=== PATIENT | male | born 1950 | race Caucasian/White ===

== ENCOUNTER 2017-08-07 10:00 | Outpatient (RCR) | payer MEDICARE, SELFPAY ==
--- NOTE | 2017-08-07 11:34 | COCO.CNN ---
Primary Reason for Visit Medical/Dental/Vision (Help with cost of ventilator) Referral to Care Coordination Referral to Care Coordination: Yes Type: PCP (Left message for [facility]. Kimberly - Shuttle Threader 08/07/17) Referral to Services: Yes Where and Who: 08/07/17 Left a message for Sloane Mccullough at [facility] to find out where to go from here. Venu had met with [facility] in the past but she is no longer working there. - Referral From Referral From: Other (Dr Mendoza) Care Plan - Plan of Care Assessment/Background: [facility] She sent Venu Gonzales up to see me because he needs help paying for the ventilator that he has to use at night. He currently has Medicare only for insurance. Venu came in and explained to me some of his medical history and how he now has to have a ventilator at night. He goes through [employer] for his supplies. He is concerned that Medicare only covers 80% of the cost and he does not have the money for the 20% remaining each month. His income comes from [employer] at roughly $1637.00 per month. Plan of Care: I will have to do some research and get back to him. I also gave him my card and asked him to call me if he hasn't heard from me or has any further questions.
--- NOTE | 2017-08-07 13:10 | PDOC.CNN_ITS ---
Primary Reason for Visit Medical/Dental/Vision (Help with cost of ventilator) Referral to Care Coordination Referral to Care Coordination: Yes Type: PCP (Left message for [facility]. Kimberly - Vice President Underwriting 08/07/17) Referral to Services: Yes Where and Who: 08/07/17 Left a message for Solane Mccullough at [facility] to find out where to go from here. Venu had met with [facility] in the past but she is no longer working there. - Referral From Referral From: Other (Dr Mendoza) Care Plan - Plan of Care Assessment/Background: [facility] She sent Venu Gonzales up to see me because he needs help paying for the ventilator that he has to use at night. He currently has Medicare only for insurance. Venu came in and explained to me some of his medical history and how he now has to have a ventilator at night. He goes through [employer] for his supplies. He is concerned that Medicare only covers 80% of the cost and he does not have the money for the 20% remaining each month. His income comes from [employer] at roughly $1637.00 per month. Plan of Care: I will have to do some research and get back to him. I also gave him my card and asked him to call me if he hasn't heard from me or has any further questions.
--- NOTE | 2017-08-07 13:20 | COCO.CNN ---
Primary Reason for Visit Medical/Dental/Vision (Ventilator costs) Referral to Care Coordination Referral to Care Coordination: No Referral to Services: No - Referral From Referral From: Self Care Plan - Plan of Care Assessment/Background: I have talked with Michael at [facility]. She said that it looks like Venu has worked with [facility] before, but she is not longer there. It looks like they had been working on a [employer] application. I left a message for Sloane @ [facility] to see if there are any programs to help him and to see if he can be set up with someone else to work with him. I left a message for Kimberly at [facility]. She is the Hydraulic Dredge Operator there at his PCP's office and I am hoping she can help me as well. I called Paige at [facility] and she said that Venu's current balance is $1044.97 and he has to meet his $183 Medicare deductible and then the 20% coinsurance he will owe per month is roughly $188.00. She said that if we can provide them a denial from Medicaid we may be able to work on a Financial Waiver Form through [facility]. She also wondered about Jail Medicaid. Plan of Care: I am awaiting a call back from [facility] and [facility] to see if they can help guide me where to go from here in helping Venu with this medical expense.
--- NOTE | 2017-08-07 13:28 | PDOC.CNN_ITS ---
Primary Reason for Visit Medical/Dental/Vision (Ventilator costs) Referral to Care Coordination Referral to Care Coordination: No Referral to Services: No - Referral From Referral From: Self Care Plan - Plan of Care Assessment/Background: I have talked with Michael at [facility]. She said that it looks like Venu has worked with [facility] before, but she is not longer there. It looks like they had been working on a [employer] application. I left a message for Sloane @ [facility] to see if there are any programs to help him and to see if he can be set up with someone else to work with him. I left a message for Kimberly at [facility]. She is the Pricing Supervisor there at his PCP's office and I am hoping she can help me as well. I called Paige at [facility] and she said that Venu's current balance is $1044.97 and he has to meet his $183 Medicare deductible and then the 20% coinsurance he will owe per month is roughly $188.00. She said that if we can provide them a denial from Medicaid we may be able to work on a Financial Waiver Form through [facility]. She also wondered about [place] Medicaid. Plan of Care: I am awaiting a call back from [facility] and [facility] to see if they can help guide me where to go from here in helping Venu with this medical expense.
== END 2018-02-01 10:00 ==
LOC: COCO 10:00
PROVIDERS: Visit Provider Internal Medicine
DX: R69 Illness, unspecified (principal)

== ENCOUNTER 2018-01-09 16:30 | Outpatient (REF) | payer MEDICARE, SELFPAY ==
[2018-01-09 22:44] LABS: ALT 29 U/L (12-78); AST 23 U/L (15-37); Albumin 4.1 g/dL (3.4-5.0); Alkaline Phosphatase 102 U/L (46-116); Anion Gap 5.1 mmol/L (3-11); BUN 16 mg/dL (7-18); Bilirubin, Total 0.4 mg/dL (0.2-1.0); CO2 34.9 mmol/L (21.0-32.0); CREATININE 1.45 mg/dL (0.70-1.30); Calcium 9.2 mg/dL (8.5-10.1); Chloride 100 mmol/L (98-107); Estimated GFR 48.54 (mL/min/1.73m2); Glucose 124 mg/dL (70-100); Potassium 5.3 mmol/L (3.5-5.1); Sodium 140 mmol/L (136-145); Total Protein 8.3 g/dL (6.4-8.2)
== END 2018-01-09 16:31 ==
LOC: NCHCN 16:30
PROVIDERS: Visit Provider Internal Medicine
DX: E11.9 Type 2 diabetes mellitus without complications (principal); I10 Essential (primary) hypertension
CPT/HCPCS: 80053

== ENCOUNTER 2018-03-11 15:18 | Outpatient (REF) | payer MEDICARE, SELFPAY ==
[2018-03-11 21:48] LABS: COMMENT (LAB VIEW ONLY) 81.09 mg/dL
== END 2018-03-11 15:38 ==
LOC: NCHCN 15:18
PROVIDERS: Visit Provider Internal Medicine
DX: E11.9 Type 2 diabetes mellitus without complications (principal)
CPT/HCPCS: 82043; 82570

== ENCOUNTER 2018-10-04 11:57 | Outpatient (REF) | payer MEDICARE, SELFPAY ==
[2018-10-04 21:33] LABS: Hemoglobin A1C 7.8 % (4.5-6.2)
[2018-10-04 21:34] LABS: Anion Gap 4.9 mmol/L (3-11); BUN 22 mg/dL (7-18); CO2 37.1 mmol/L (21.0-32.0); CREATININE 1.44 mg/dL (0.70-1.30); Chloride 96 mmol/L (98-107); Estimated GFR 48.93 (mL/min/1.73m2); Glucose 240 mg/dL (70-100); Potassium 5.3 mmol/L (3.5-5.1); Sodium 138 mmol/L (136-145)
== END 2018-10-04 12:17 ==
LOC: NCHCN 11:57
PROVIDERS: Visit Provider Internal Medicine
DX: E11.9 Type 2 diabetes mellitus without complications (principal); I10 Essential (primary) hypertension
CPT/HCPCS: 80048; 83036

== ENCOUNTER 2018-10-07 13:05 | Outpatient (REF) | payer MEDICARE, SELFPAY ==
[2018-10-08 09:56] LABS: COMMENT (LAB VIEW ONLY) 77.69 mg/dL
== END 2018-10-07 13:25 ==
LOC: NCHCN 13:05
PROVIDERS: Visit Provider Internal Medicine
DX: E11.9 Type 2 diabetes mellitus without complications (principal)
CPT/HCPCS: 82043; 82570

== ENCOUNTER 2019-06-13 12:59 | Outpatient (REF) | payer MEDICARE, SELFPAY ==
[2019-06-13 20:45] LABS: Bilirubin Negative (Negative); Blood Small (Negative); Clarity Clear (Clear); Glucose 500 mg/dL (Negative); Ketones Negative (Negative); Leukocyte Esterase Negative (Negative); Nitrite Negative (Negative); Specific Gravity 1.025 (1.005-1.025); Urobilinogen 0.2 EU/dL (Up TO 0.2)
[2019-06-13 21:30] LABS: Epithelial Cells Moderate HPF (Negative); RBC 0-2 HPF (0-2)
[2019-06-13 21:31] LABS: C & S Indicated? No/Sq. Contamination; Other Cells Few Renal (Negative)
== END 2019-06-13 13:19 ==
LOC: NCHCN 12:59
PROVIDERS: Visit Provider Internal Medicine
DX: R10.9 Unspecified abdominal pain (principal)
CPT/HCPCS: 81003; 81015

== ENCOUNTER 2019-06-26 14:38 | Outpatient (REF) | payer MEDICARE, SELFPAY ==
[2019-06-26 21:09] LABS: Abs Immature Grans 0.01 k/cumm (0.0-0.09); Absolute Basophil Count 0.02 k/cumm (0.0-0.2); Absolute Eosinophil Count 0.26 k/cumm (0.0-0.7); Absolute Lymphocyte Count 0.87 k/cumm (1.2-3.4); Absolute Neutrophil Count 6.11 k/cumm (1.2-6.7); Basophils % 0.2; Eosinophils % 3.2; HCT 39.7 % (40.0-50.0); HGB 12.3 g/dL (13.5-17.5); Immature Grans % 0.1 %; Lymphocytes % 10.8; Mean Corpuscular Hemoglobin 29.1 pg (27.0-33.0); Mean Corpuscular Volume 93.9 fL (80-95); Mean Platelet Volume 10.8 fL (8.0-11.0); Monocytes % 9.9; Neutrophils % 75.8; Platelet Count 259 x1000/uL (130-400); RBC 4.23 m/cumm (4.50-6.00); RBC Distribution Width 12.8 % (11.8-14.1); White Blood Cell Count 8.07 k/cumm (4.4-10.8)
[2019-06-26 21:32] LABS: ALT 28 U/L (16-63); AST 28 U/L (15-37); Albumin 3.9 g/dL (3.4-5.0); Alkaline Phosphatase 99 U/L (46-116); Anion Gap 8.8 mmol/L (3-11); BUN 17 mg/dL (7-18); Bilirubin, Total 0.3 mg/dL (0.2-1.0); CO2 32.2 mmol/L (21.0-32.0); CREATININE 1.37 mg/dL (0.70-1.30); Chloride 99 mmol/L (98-107); Estimated GFR 51.67 (mL/min/1.73m2); Glucose 177 mg/dL (74-106); Potassium 4.5 mmol/L (3.5-5.1); Sodium 140 mmol/L (136-145); Total Protein 8.1 g/dL (6.4-8.2)
== END 2019-06-26 14:58 ==
LOC: NCHCN 14:38
PROVIDERS: Visit Provider Internal Medicine
DX: D64.9 Anemia, unspecified (principal); N18.3 Chronic kidney disease, stage 3 (moderate)
CPT/HCPCS: 80053; 85025

== ENCOUNTER 2019-09-23 11:21 | Outpatient (REF) | payer MEDICARE, SELFPAY ==
[2019-09-23 20:39] LABS: Anion Gap 2.4 mmol/L (3-11); BUN 32 mg/dL (7-18); CO2 39.6 mmol/L (21.0-32.0); Calcium 9.1 mg/dL (8.5-10.1); Chloride 94 mmol/L (98-107); Estimated GFR 33.39 (mL/min/1.73m2); Glucose 361 mg/dL (74-106); Potassium 4.3 mmol/L (3.5-5.1); Sodium 136 mmol/L (136-145)
== END 2019-09-23 11:41 ==
LOC: NCHCN 11:21
PROVIDERS: Visit Provider Nurse Practitioner Family
DX: I10 Essential (primary) hypertension (principal)
CPT/HCPCS: 80048

== ENCOUNTER 2019-09-30 20:51 | Outpatient (REF) | payer MEDICARE, SELFPAY ==
[2019-09-30 21:45] LABS: Anion Gap 2.4 mmol/L (3-11); BUN 21 mg/dL (7-18); CO2 36.6 mmol/L (21.0-32.0); CREATININE 1.59 mg/dL (0.70-1.30); Calcium 8.8 mg/dL (8.5-10.1); Chloride 96 mmol/L (98-107); Estimated GFR 43.51 (mL/min/1.73m2); Glucose 258 mg/dL (74-106); Potassium 4.9 mmol/L (3.5-5.1); Sodium 135 mmol/L (136-145)
== END 2019-09-30 21:11 ==
LOC: NCHCN 20:51
PROVIDERS: Visit Provider Nurse Practitioner Family
DX: I10 Essential (primary) hypertension (principal)
CPT/HCPCS: 80048

== ENCOUNTER 2019-10-10 13:04 | Outpatient (REF) | payer MEDICARE, SELFPAY ==
[2019-10-10 21:09] LABS: Anion Gap 3.9 mmol/L (3-11); BUN 25 mg/dL (7-18); CO2 35.1 mmol/L (21.0-32.0); CREATININE 1.57 mg/dL (0.70-1.30); Calcium 8.7 mg/dL (8.5-10.1); Chloride 98 mmol/L (98-107); Estimated GFR 44.15 (mL/min/1.73m2); Glucose 161 mg/dL (74-106); Potassium 4.5 mmol/L (3.5-5.1); Sodium 137 mmol/L (136-145)
[2019-10-13 08:37] LABS: PSA, Screening 19.6 ng/mL (0.0-4.5)
== END 2019-10-10 13:24 ==
LOC: NCHCN 13:04
PROVIDERS: Visit Provider Nurse Practitioner Family
DX: I10 Essential (primary) hypertension (principal); Z12.5 Encounter for screening for malignant neoplasm of prostate
CPT/HCPCS: 80048; 84153

== ENCOUNTER 2019-11-04 11:41 | Outpatient (REF) | payer MEDICARE, SELFPAY ==
[2019-11-04 21:31] LABS: Anion Gap 2.8 mmol/L (3-11); BUN 25 mg/dL (7-18); CO2 38.2 mmol/L (21.0-32.0); CREATININE 1.51 mg/dL (0.70-1.30); Calcium 8.4 mg/dL (8.5-10.1); Chloride 99 mmol/L (98-107); Estimated GFR 46.18 (mL/min/1.73m2); Glucose 124 mg/dL (74-106); Potassium 4.4 mmol/L (3.5-5.1); Sodium 140 mmol/L (136-145); Uric Acid 4.3 mg/dL (3.5-7.2)
== END 2019-11-04 12:01 ==
LOC: NCHCN 11:41
PROVIDERS: Visit Provider Nurse Practitioner Family
DX: I10 Essential (primary) hypertension (principal); M10.00 Idiopathic gout, unspecified site
CPT/HCPCS: 80048; 84550

== ENCOUNTER 2019-11-25 21:45 | Outpatient (REF) | payer MEDICARE, SELFPAY ==
[2019-11-25 22:44] LABS: Anion Gap 4.1 mmol/L (3-11); BUN 26 mg/dL (7-18); CO2 38.9 mmol/L (21.0-32.0); CREATININE 1.84 mg/dL (0.70-1.30); Calcium 9.1 mg/dL (8.5-10.1); Chloride 97 mmol/L (98-107); Estimated GFR 36.77 (mL/min/1.73m2); Glucose 156 mg/dL (74-106); Potassium 4.3 mmol/L (3.5-5.1); Sodium 140 mmol/L (136-145)
== END 2019-11-25 22:05 ==
LOC: NCHCN 21:45
PROVIDERS: Visit Provider Internal Medicine
DX: N18.3 Chronic kidney disease, stage 3 (moderate) (principal); M25.473 Effusion, unspecified ankle
CPT/HCPCS: 80048

== ENCOUNTER 2019-12-16 22:31 | Outpatient (REF) | payer MEDICARE, SELFPAY ==
[2019-12-16 21:53] LABS: Hemoglobin A1C 6.5 % (3.8-5.6)
[2019-12-16 21:57] LABS: Creatinine,Urine 73.19 mg/dL; PROTEIN 119.8 mg/dL (0.0-11.9)
[2019-12-16 22:24] LABS: BUN 16 mg/dL (7-18); CREATININE 1.53 mg/dL (0.70-1.30); Calcium 9.1 mg/dL (8.5-10.1); Chloride 100 mmol/L (98-107); Estimated GFR 45.49 (mL/min/1.73m2); Glucose 94 mg/dL (74-106); Potassium 4.9 mmol/L (3.5-5.1); Sodium 140 mmol/L (136-145)
== END 2019-12-16 22:51 ==
LOC: NCHCN 22:31
PROVIDERS: Visit Provider Internal Medicine
DX: N18.3 Chronic kidney disease, stage 3 (moderate) (principal); E11.9 Type 2 diabetes mellitus without complications; I10 Essential (primary) hypertension
CPT/HCPCS: 80048; 82565; 83036; 84156

== ENCOUNTER 2020-01-02 14:15 | Outpatient (REF) | payer MEDICARE, SELFPAY ==
[2020-01-02 22:03] LABS: Anion Gap 2.9 mmol/L (3-11); BUN 14 mg/dL (7-18); CO2 35.1 mmol/L (21.0-32.0); CREATININE 1.35 mg/dL (0.70-1.30); Calcium 8.5 mg/dL (8.5-10.1); Chloride 102 mmol/L (98-107); Glucose 116 mg/dL (74-106); Potassium 5.4 mmol/L (3.5-5.1); Sodium 140 mmol/L (136-145)
== END 2020-01-02 14:35 ==
LOC: NCHCN 14:15
PROVIDERS: Visit Provider Internal Medicine
DX: I10 Essential (primary) hypertension (principal); N18.3 Chronic kidney disease, stage 3 (moderate)
CPT/HCPCS: 80048

== ENCOUNTER 2020-02-02 12:04 | Outpatient (REF) | payer MEDICARE, SELFPAY ==
[2020-02-02 21:15] LABS: Anion Gap 3.7 mmol/L (3-11); BUN 17 mg/dL (7-18); CO2 37.3 mmol/L (21.0-32.0); CREATININE 1.44 mg/dL (0.70-1.30); Calcium 8.5 mg/dL (8.5-10.1); Chloride 102 mmol/L (98-107); Estimated GFR 48.64 (mL/min/1.73m2); Glucose 94 mg/dL (74-106); Potassium 4.5 mmol/L (3.5-5.1); Sodium 143 mmol/L (136-145)
== END 2020-02-02 12:24 ==
LOC: NCHCN 12:04
PROVIDERS: Visit Provider Internal Medicine
DX: I10 Essential (primary) hypertension (principal)
CPT/HCPCS: 80048

== ENCOUNTER 2020-02-06 15:30 | Outpatient (REF) | payer MEDICARE, SELFPAY ==
[2020-02-06 21:31] LABS: Abs Immature Grans 0.02 10^3/uL (0.0-0.06); Absolute Basophil Count 0.02 10^3/uL (0.0-0.2); Absolute Eosinophil Count 0.15 10^3/uL (0.0-0.7); Absolute Lymphocyte Count 0.54 10^3/uL (1.2-3.4); Absolute Monocyte Count 0.63 10^3/uL (0.1-0.8); Absolute Neutrophil Count 4.31 10^3/uL (1.2-6.7); Basophils % 0.4; Eosinophils % 2.6; HCT 35.8 % (40.0-50.0); HGB 10.5 g/dL (13.5-17.5); Immature Grans % 0.4; Lymphocytes % 9.5; MCH 27.3 pg (27.0-33.0); MCHC 29.3 % (32.0-36.0); MPV 11.1 fL (8.0-11.0); Monocytes % 11.1; Nucleated RBC 0 %; Platelet Count 123 10^3/uL (130-400); RBC 3.85 10^6/uL (4.36-5.78); RDW 13.7 % (11.8-14.1); RDW-SD 46.6 fL; WBC 5.67 10^3/uL (4.4-10.8)
[2020-02-06 21:53] LABS: Iron 38 ug/dL (65-175); Total Iron Binding Capacity 392 ug/dL (250-450); Transferrin Sat 10 % (20-55)
[2020-02-06 22:20] LABS: Ferritin 32 ng/mL (26-388); Vitamin B12 250 pg/mL (193-986)
== END 2020-02-06 15:50 ==
LOC: NCHCN 15:30
PROVIDERS: Visit Provider Internal Medicine
DX: D64.9 Anemia, unspecified (principal)
CPT/HCPCS: 82607; 82728; 83540; 83550; 85025

== ENCOUNTER 2020-05-05 11:05 | Outpatient (REF) | payer MEDICARE, SELFPAY ==
[2020-05-05 22:10] LABS: HCT 33.3 % (40.0-50.0); HGB 9.5 g/dL (13.5-17.5); MCH 26.4 pg (27.0-33.0); MCHC 28.5 % (32.0-36.0); MCV 92.5 fL (80-95); Platelet Count 140 10^3/uL (130-400); RDW 15.6 % (11.8-14.1); WBC 5.06 10^3/uL (4.4-10.8)
[2020-05-05 22:22] LABS: Anion Gap 7.2 mmol/L (3-11); BUN 23 mg/dL (7-18); CO2 31.8 mmol/L (21.0-32.0); CREATININE 1.64 mg/dL (0.70-1.30); Calcium 8.3 mg/dL (8.5-10.1); Chloride 105 mmol/L (98-107); Estimated GFR 41.86 (mL/min/1.73m2); Glucose 104 mg/dL (74-106); Potassium 4.7 mmol/L (3.5-5.1); Sodium 144 mmol/L (136-145)
== END 2020-05-05 11:25 ==
LOC: NCHCN 11:05
PROVIDERS: Visit Provider Internal Medicine
DX: I10 Essential (primary) hypertension (principal); E11.9 Type 2 diabetes mellitus without complications; C61 Malignant neoplasm of prostate; N40.0 Benign prostatic hyperplasia without lower urinary tract symptoms; N18.30 Chronic kidney disease, stage 3 unspecified; D64.9 Anemia, unspecified
CPT/HCPCS: 80048; 85027

== ENCOUNTER 2020-05-22 18:42 | Outpatient (REF) | payer MEDICARE, SELFPAY ==
[2020-05-24 21:09] LABS: COVID-19 RT-PCR UVMMC Result Negative (Negative)
== END 2020-05-22 19:02 ==
LOC: LBN 18:42
PROVIDERS: Visit Provider Family Medicine
DX: R05 Cough (principal); R50.9 Fever, unspecified; R51.9 Headache, unspecified; R19.7 Diarrhea, unspecified
CPT/HCPCS: U0003

== ENCOUNTER 2020-07-14 13:55 | Outpatient (REF) | payer MEDICARE, SELFPAY ==
[2020-07-14 22:10] LABS: Abs Immature Grans 0.02 10^3/uL (0.0-0.06); Absolute Basophil Count 0.02 10^3/uL (0.0-0.2); Absolute Eosinophil Count 0.12 10^3/uL (0.0-0.7); Absolute Lymphocyte Count 0.64 10^3/uL (1.2-3.4); Absolute Monocyte Count 0.54 10^3/uL (0.1-0.8); Absolute Neutrophil Count 3.37 10^3/uL (1.2-6.7); Basophils % 0.4; Eosinophils % 2.5; HCT 33.4 % (40.0-50.0); Immature Grans % 0.4; Lymphocytes % 13.6; MCHC 29.9 % (32.0-36.0); MCV 93.6 fL (80-95); MPV 11.3 fL (8.0-11.0); Monocytes % 11.5; Neutrophils % 71.6; Nucleated RBC 0 %; Platelet Count 142 10^3/uL (130-400); RBC 3.57 10^6/uL (4.36-5.78); RDW-SD 51.8 fL; WBC 4.71 10^3/uL (4.4-10.8)
[2020-07-14 22:19] LABS: Anion Gap 5.1 mmol/L (3-11); BUN 29 mg/dL (7-18); CO2 31.9 mmol/L (21.0-32.0); CREATININE 1.6 mg/dL (0.70-1.30); Calcium 8.8 mg/dL (8.5-10.1); Chloride 103 mmol/L (98-107); Estimated GFR 43.07 (mL/min/1.73m2); Glucose 100 mg/dL (74-106); Potassium 5.1 mmol/L (3.5-5.1); Sodium 140 mmol/L (136-145)
== END 2020-07-14 13:56 | disposition home or self-care (01) ==
LOC: NCHCN 13:55
PROVIDERS: PCP Internal Medicine; Visit Provider Internal Medicine
DX: D64.9 Anemia, unspecified (principal); N18.30 Chronic kidney disease, stage 3 unspecified
CPT/HCPCS: 80048; 85025

== ENCOUNTER 2020-07-27 21:58 | Outpatient (REF) | payer MEDICARE, SELFPAY ==
[2020-07-29 11:33] LABS: COVID-19 RT-PCR UVMMC Result Negative (Negative)
== END 2020-07-27 21:59 | disposition home or self-care (01) ==
LOC: NCHCN 21:58
PROVIDERS: PCP Internal Medicine; Visit Provider Internal Medicine
DX: Z20.822 Contact with and (suspected) exposure to COVID-19 (principal); Z01.818 Encounter for other preprocedural examination
CPT/HCPCS: U0003

== ENCOUNTER 2020-08-18 13:29 | Outpatient (REF) | payer MEDICARE, SELFPAY ==
[2020-08-19 18:19] LABS: PSA, Diagnostic 19.5 ng/mL (0.0-4.5)
== END 2020-08-18 13:30 | disposition home or self-care (01) ==
LOC: NCHCN 13:29
PROVIDERS: PCP Internal Medicine; Visit Provider Internal Medicine
DX: C61 Malignant neoplasm of prostate (principal)
CPT/HCPCS: 84153

== ENCOUNTER 2020-11-29 16:34 | Outpatient (REF) | payer MEDICARE, SELFPAY ==
[2020-11-30 16:59] LABS: PSA, Diagnostic 22.4 ng/mL (0.0-4.5)
== END 2020-11-29 16:35 | disposition home or self-care (01) ==
LOC: NCHCN 16:34
PROVIDERS: PCP Internal Medicine; Visit Provider Internal Medicine
DX: C61 Malignant neoplasm of prostate (principal)
CPT/HCPCS: 84153

== ENCOUNTER 2020-12-21 12:07 | Outpatient (REF) | payer MEDICARE, SELFPAY ==
[2020-12-21 22:26] LABS: Anion Gap 7.8 mmol/L (3-11); BUN 62 mg/dL (7-18); CO2 34.2 mmol/L (21.0-32.0); Calcium 8.1 mg/dL (8.5-10.1); Chloride 100 mmol/L (98-107); Estimated GFR 12.42 (mL/min/1.73m2); Glucose 98 mg/dL (74-106); Potassium 5.1 mmol/L (3.5-5.1); Sodium 142 mmol/L (136-145)
[2020-12-22 01:05] LABS: CREATININE 4.7 mg/dL (0.70-1.30)
== END 2020-12-21 12:08 | disposition home or self-care (01) ==
LOC: NCHCN 12:07
PROVIDERS: PCP Internal Medicine; Visit Provider Nurse Practitioner Family
DX: I10 Essential (primary) hypertension (principal)
CPT/HCPCS: 80048